=== PATIENT | female | born 1950 | race Caucasian/White ===

== ENCOUNTER 2025-04-13 14:22 | Emergency (ER) | payer MEDICARE, BC, SELFPAY ==
[2025-04-13 14:27] VITALS: BP 180/85; PULSE 88; RESP 18; TEMP 36.7; O2SAT 95; BMI 26.3
--- OUTSIDE RECORDS SUMMARY | 2025-04-13 14:34 | XMS_ITS | Clinical Summary ---
Author Organization [facility] Address [address] [place] [id number] Care Team Providers Care Intellectual Property Legal Assistant Name Role Phone Alana, Lilia Dominguez MD Primary Care Provider Allergies Active Allergy Reactions Criticality Noted Date Comments Lonny Inhibitors Cough 10/01/2011 Atenolol Arrhythmia,Other - Describe In Comment Field High 05/29/2012 Caused Atrial Fib Caused Atrial Fib Atorvastatin Myalgia 03/12/2017 Tree Nut Rash Influenza Virus Vaccines Rash 06/29/2019 Lisinopril Intolerance-Can't Take,Cough 07/24/2007 cough cough Pravastatin Myalgia 06/23/2018 Medications fluticasone (50 mcg per actuation) nasal solution (FLONASE) Inhale 2 Sprays in the nostril(s). Active multivitamin (MVI) tablet Take 1 Tab by mouth. 012 Active ezetimibe (ZETIA) 10 mg tabletIndications :Hyperlipidemia, unspecified hyperlipidemia type Take 1 Tablet (10 mg) by mouth once daily. 90 Tablet 3 025 Active acetaminophen 325 mg tabletIndications :S/P placement of cardiac pacemaker,Pain Take 2 Tablets (650 mg) by mouth every 4 hours if needed for Pain (For mild pain.). Max acetaminophen dose: 4000mg in 24 hrs. 025 Active losartan 100 mg tabletIndications :Essential hypertension Take 1 Tablet (100 mg) by mouth once daily. 90 Tablet 3 07/07/2 025 Active amLODIPine (NORVASC) 10 mg tabletIndications :Persistent atrial fibrillation (HC) Take 0.5 Tablets (5 mg) by mouth once daily. Active albuterol HFA (PRO-AIR; VENTOLIN; PROVENTIL) 90 mcg/actuation inhalerIndication s:Bronchitis with bronchospasm Inhale 1-2 Puffs by mouth every 6 hours if needed for Shortness Of Breath. 18 g Active rivaroxaban (XARELTO) 20 mg tabletIndications :prevention of thromboembolism in paroxysmal atrial fib Take 1 Tablet (20 mg) by mouth once daily with evening meal. 90 Tablet 3 Active metoprolol tartrate (LOPRESSOR) 50 mg tabletIndications :Persistent atrial fibrillation (HC) Take 1 Tablet (50 mg) by mouth two times daily. 180 Tablet 3 Active rivaroxaban 20 mg tabletIndications :prevention of thromboembolism in paroxysmal atrial fib Take 1 Tablet (20 mg) by mouth once daily with evening meal. Resume medication on evening of 10/14/24 90 Tablet 3 025 2024 Discontinued(R eorder (E-cancel not sent)) oxyCODONE 5 mg immediate release tabletIndications :S/P placement of cardiac pacemaker,Pain Take 1 Tablet (5 mg) by mouth every 4 hours if needed for Pain. 6 Tablet 025 2024 Discontinued(O ther - add note to specify (E-cancel not sent)) metoprolol tartrate (LOPRESSOR) 25 mg tabletIndications :Persistent atrial fibrillation (HC) Take 2 Tablets (50 mg) by mouth two times daily. 120 Tablet 1 025 2024 Discontinued albuterol HFA (PRO-AIR; VENTOLIN; PROVENTIL) 90 mcg/actuation inhalerIndication s:Bronchitis with bronchospasm Inhale 1-2 Puffs by mouth every 6 hours if needed for Shortness Of Breath. 18 g 025 2024 Discontinued(R eorder (E-cancel not sent)) metoprolol tartrate (LOPRESSOR) 50 mg tabletIndications :Persistent atrial fibrillation (HC) Take 1 Tablet (50 mg) by mouth two times daily. NOTE TABLET STRENGTH INCREASE - TAKE ONE TABLET 2x DAILY 180 Tablet 3 025 2024 Discontinued(R eorder (E-cancel not sent)) Active Problems Problem Noted Date Diagnosed Date S/P placement of cardiac pacemaker 04/07/2025 Hypertension 04/07/2025 Sinus pause 10/20/2024 s/p Cardiac pacemaker 10/20/2024 Colon polyp 10/11/2022 Overview (10/11/2022): Colonoscopy 09/2022 2-TA, repeat in 7 years PAF (paroxysmal atrial fibrillation) 07/05/2021 Prediabetes 03/13/2016 Osteopenia 03/13/2016 Screen for colon cancer 05/29/2012 Overview (05/29/2012): Colonoscopy 05/2012 normal repeat in 10 years Vitamin D deficiency 04/11/2010 Mixed hyperlipidemia Unspecified essential hypertension Encounters Date Type Department Care Team Description 04/13/2025 Telephone [facility] [address] [facility] [address] [place] [phone] Blake Milton MD Concerns 04/07/2025 10:30 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 Office Visit [facility] [address] [place] [address] [address] [place] [address] Gelnna Luo PA Follow Up (F/u PPM implant; pt feeling fatigued) 04/07/2025 Travel 03/26/2025 Refill [facility] [address] [facility] [address] [place] [phone] Blake Milton MD Refill Request (Metoprolol Tartrate) 03/23/2025 Refill [facility] [address] [place] [address] Lilia Warner MD Refill Request (Ventolin) 03/02/2025 Travel 02/16/2025 Refill [facility] [address] [place] [address] Alana, Lilia Angelica, MD Refill Request (VENTOLIN INHALER) from Last 3 Months Immunizations Immunization Administration Dates Next Due AMB INFLUENZA IIV3 (AGE 65+ YRS) PF (Flu Clinic Only) 03/13/2018 COVID-19 VACCINE SPIKEVAX (M ODERNA 50MCG/0.5ML) 12YO+ PFS 07/10/2023 COVID-19 vaccine (Pfizer-Bio NTech 30mcg/0.3mL) 12YO+ BIVALENT PF, MDV 07/06/2022 COVID-19 vaccine (Pfizer-Bio NTech 30mcg/0.3mL) PF, MDV 08/14/2020,07/24/2020 Influenza Virus, Unspecified 05/29/2009 Influenza, High-dose Inactivated 03/13/2016,02/18,03/04/2014 Influenza, IIV3 (Age >=3 years) 03/03/2010 Influenza, Inactivated IIV3 (Age 65+ Years) Preserv Free 03/19/2017 Pneumococcal Poly,23-Valent (Pneumovax) 06/05/19 18 Pneumococcal conj 13-Valent (Prevnar 13) 014 Td (Age >=7 Years) 10/08/1995 Td, Preservative Free (age >= 7 Years) 8 Tdap 03/26/2007 Family History Medical History Relation Name Comments Heart Disease Father ND at age 61, fatal Diabetes Mother 10/14/24 Cancer-colon Neg. 1 Heart Disease Neg. 2 Anesthesia Problem Neg. 3 Cancer-breast No Family History Cancer-ovarian No Family History Relation Name Status Comments Father Mother Neg. 1 Neg. 2 Neg. 3 Sister Social History Tobacco Use Types Packs/Day Years Used Date Smoking Tobacco: Never Smokeless Tobacco: Never Tobacco Cessation:Counseling Given: Yes Alcohol Use Standard Drinks/Week Comments Not Currently 0 (1 standard drink = 0.6 oz pur e alcohol) occasional PHQ-2 Answer Date Recorded PHQ-2 TOTAL SCORE 2 07/17/2024 Social Connections Answer Date Recorded Do you often feel lonely or isolated from those around you? 0 07/17/2024 Alcohol Use Answer Date Recorded How often do you have a drink containing alcohol ? 0 04/07/2025 Average Number of Drinks Not on file 025 Frequency of Binge Drinking Not on file 03/20 Financial Resource Strain Answer Date R ecorded Difficulty of Paying Living Expenses 3 07/17/2024 Difficulty of Paying Living Expenses Not on file 07/17/2024 Food Insecurity Answer Date Recorded Do you worry your food will run out before you are able to buy more? 1 07/17/2024 Transportation Needs Answer Date Record ed Does lack of transportation keep you from medica l appointments? 1 07/17/2024 Does lack of transportation keep you from work, meetings or getting things that you need? 1 07/17/2024 Housing Stability Answer Date Recorded What is your housing situation today? 1 07/17/2024 Utilities Answer Date Recorded Do you have trouble paying f or utilities (for example, heat, electricity, water, phone)? 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 Gender Identity Not on file Sexual Orientation Not on file Obstetrics History Last Filed Vital Signs Vital Sign Reading Time Taken Comments Blood Pressure 144/98 04/07/2025 10:43 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 Pulse 90 04/07/2025 10:27 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 Temperature 36.1 C (97 F) 10/13/2024 11:30 AM CDT Respiratory Rate 16 10/13/2024 11:30 AM CDT Oxygen Saturation 95% 04/07/2025 10:27 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 Inhaled Oxygen Concentration - - Weight 63.5 kg (140 lb) 04/07/2025 10:27 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 Height 154.9 cm (5' 0.98) 04/07/2025 10:[address] Body Mass Index 26.47 04/07/2025 10:27 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 Plan of Treatment Upcoming Encounters Date Type Department Care Team (Late st Contact Info) Description 07/05/2025 Cardiac Device Check EV Connect [facility] [phone] Health Maintenance Due Date Last Done Comments Zoster (shingles) series for age 50+ (1 of 2) 1999 RSV vaccine for adults or (1 - 1-dose 75+ series) 01/02/2024 COVID-19 vaccine series ( season) 2025 07/10/2023, 07/06/2022, 12/11/2021, Additional history exists Depression screening for age 12+ 07/17/2025 07/17/2024, 07/10/2023, 07/09/2022, Additional history exists Medicare Wellness for age 65+ 07/18/2025 07/17/2024, 07/10/2023, 07/06/2022, Additional history exists BMI (ht and wt on same day) for age 18+ 04/07/2026 04/07/2025, 10/01/2024, 08/20/2024, Additional history exists Tetanus booster 06/05/2027 06/05/2017, 11/2006, 10/08/1995 Hepatitis C screening for age 18-79 Completed 03/08/2015 Pneumococcal series for age 50+ Completed 06/05/2017, 03/04/2014 DEXA/DXA scan for age 65+ Completed 2024, 06/30/2019, 03/22/2015 Hepatitis B series for 19+ Aged Out N o longer eligible based on patient's age to complete this topic Procedures Procedure Name Priority Date/Time Associated Diagnosis Comments EKG 12 LEAD Routine 04/07/2025 Paroxysmal atrial fibrillation (HC) Fitting or adjustment of cardiac pacemaker Sinus node dysfunction (HC) XR DXA BONE DENSITY 2 SITES AXIAL Routine 07/31/2024 8:35 AM CDT Menopause ANTI HCV Routine 03/08/2015 8:50 AM CDT Need for hepatitis C screening test from Last 3 Months or Most Recently Relevant to Health Maintenance Results * EKG 12 LEAD (04/07/2025) Glenna BOWERS EKG ORD Final Result * (ABNORMAL) XR DXA BONE DENSITY 2 SITES AXIAL (07/31/2024 8:35 AM CDT) Anatomical Region Laterality Modality Spine, HIPS, HIPL, HIPR Other Impressions 08/11/2024 7:36 PM CDT Osteopenia. RECOMMENDATIONS: The National Osteoporosis Foundation recommends pharmacologic treatment for patients with T-scores of -2.5 or less, patients with prior history of fragility fractures, or patients with 10-year probability of greater than 3% at hips or greater than 20% of suffering major osteoporotic fractures. Recommend continued optimization of calcium and vitamin D intake through dietary means and/or supplementation and regular exercise. Consider pharmacologic therapy for osteopenia with increased fracture risk. Follow-up bone density reading in 2 years if therapy initiated to assess therapeutic efficacy. Leora Frost PA-C [facility] 08/11/2024 Narrative 08/11/2024 7:36 PM CDT For Patients: Results are automatically released to your [facility] ([facility]) account once available, in compliance with federal regulations. This means that you may see your results before your provider has had a chance to review them. Please allow 2-3 business days for your provider to comment on the results. XR DXA Bone Mineral Density (BMD) EXAM LOCATION: [address] [address] PATIENT NAME: Tiesha Echavarria DATE OF : 1950 EXAM DATE: 07/31/2024 REQUESTING PROVIDER: Lilia Warner MD GENDER AT : female HEIGHT: 5' 1.42 (07/17/2024) WEIGHT: 135 lb 9.6 oz (07/17/2024) MENOPAUSAL STATUS: Postmenopausal RACE/ETHNICITY: White RISK FACTORS: White Race CURRENT MEDICATION FOR BONE LOSS: NONE INDICATION: Menopause COMPARISON DATE(S): 2019 DXA scans are compared to prior studies for a patient only when the two (or more) studies were performed on the same scanner. It is not possible to compare data generated on one scanner to data from another because there are not standards in DXA equipment. This applies even if the two scanners are made by the same insurance biller. PROCEDURE: Dual-energy x-ray absorptiometry performed with routine technique. Reporting is completed in the form of a T-score. The T-score represents the standard deviation from peak bone mass based on young healthy adult. A Z-score is used for diagnosis in premenopausal women, and for men under the age of 50. FINDINGS: RESULT LUMBAR SPINE L1 - L4 BMD: 1.006 g/cm2 T-Score: - 1.5 Z-Score: + 0.4 Change from prior in 2019: Decrease 2.3%. RESULTS FEMUR Left femoral neck BMD: 0.706 g/cm2 T-Score: - 2.4 Z-Score: - 0.4 Change from prior in 2020: Decrease 6.1%. Right femoral neck BMD: 0.711 g/cm2 T-Score: - 2.3 Z-Score: - 0.3 Change from prior in 2020: Decrease 6.2%. Left hip BMD: 0.747 g/cm2 T-Score: - 2.1 Z-Score: - 0.2 Change from prior in 2020: Decrease 9.9%. Right hip BMD: 0.806 g/cm2 T-Score: - 1.6 Z-Score: + 0.2 Change from prior in 2020: Decrease 6.3%. WHO criteria: Normal: T-score at or above -1 SD Osteopenia: T-score between -1.1 and -2.4 SD Osteoporosis: T-score at or below -2.5 SD FRAX RISK CALCULATION (USED FOR OSTEOPENIA ONLY): 10-year probability of major osteoporotic fracture: 16.7%. 10-year probability of hip fracture: 5.2%. us Lilia Warner MD DEXA Final R esult * ANTI HCV (03/08/2015 8:50 AM CDT) HEPATITIS C ANTIBODY Non-Reacti ve Non-Reacti ve 03/08/2015 3:27 PM CDT [facility] Blood specimen (specimen) BLOOD SPECIMEN / Unknown Venipuncture / Unknown 03/08/2015 8:50 AM CDT 03/08/2015 8:51 AM CDT Narrative [facility] - 03/08/2015 3:27 PM CDT Antibodies to HCV not detected; does not exclude the possibility of exposure to HCV. us Quang Byrd MD SEND OUTS Final Result [facility] 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
--- NOTE | 2025-04-13 15:06 | ED.GENADULT ---
HPI - General Adult General Chief complaint: Hypertension Stated complaint: Hypertention Time Seen by Provider: 04/13/25 14:34 History of Present Illness HPI narrative: This 75-year-old female comes in with her and reports an episode of color and flickering lights in her vision that happened prior to arrival and now is completely resolved. She does not have any speech change or other neurologic deficit. She does not report a headache. She did measure her blood pressure and noticed that it was elevated. Related Data Home Medications ?Medication ?Instructions ?Recorded ?Confirmed amlodipine 10 mg tablet 5 mg PO DAILY 04/13/25 04/13/25 ezetimibe 10 mg tablet 10 mg PO DAILY 04/13/25 04/13/25 losartan 100 mg tablet 100 mg PO DAILY 04/13/25 04/13/25 metoprolol tartrate 25 mg tablet mg PO BID 04/13/25 rivaroxaban 20 mg tablet (Xarelto) 20 mg PO DAILY 04/13/25 04/13/25 Allergies Allergy/AdvReac Type Severity Reaction Status Date / Time No Known Drug Allergies Allergy Verified 04/13/25 14:32 Review of Systems Status of ROS: Reports: 10 or more systems reviewed and unremarkable except as noted in History and below Narrative: Constitutional: No fevers, no weight gain or loss. Eyes: No discharge. Vision change as described above. HENT: No congestion, no sore throat, no ear pain. Cardiovascular: No chest pain, no palpitations. Respiratory: No shortness of breath, no wheezes, no cough. Gastrointestinal: No abdominal pain, no vomiting, no diarrhea. Genitourinary: No dysuria, no hematuria. Musculoskeletal: Normal range of motion. Skin: No rashes, no pruritis. Neurological: No dizziness, weakness, sensory change, speech change. Endo/Heme/Allergies: No bruising or bleeding. No polydipsia. Pysch: no suicidality, no anxiety, no insomnia. All other systems reviewed and are negative. Exam Narrative: Exam Narrative: Constitutional: Well-developed, well-nourished, no acute distress. HEENT: Normocephalic, atraumatic. Neck: Normal range of motion. Nontender. Supple. Heart: Regular. No murmurs. Normal rate. Intact distal pulses. Lungs: Clear to auscultation. No chest discomfort. No wheezes, rhonchi, or rales. Abdomen: Normal bowel sounds. Nontender. No rebound tenderness. Genitalia: Deferred. Back: No midline tenderness. Normal range of motion. Extremities: Normal range of motion. No injury. Skin: Intact. No rash. Warm. No erythema or pallor. Neurologic: No altered sensation. No weakness. Alert and oriented. Psychiatric: No suicidality. No anxiety or depression. No insomnia. Nursing notes and vitals signs are reviewed. Const: Vital Signs, click to edit/add: Vital Signs - 24 hr 04/13/25 14:27 Temperature 98.1 F Pulse Rate [Pulse Oximeter] 88 Respiratory Rate 18 Blood Pressure [Ri t Upper Arm] 180/85 H Pulse Oximetry 95 Oxygen Delivery Me thod Room Air Course Vital Signs Vital signs: Initial Vital Signs Temperature 98.1 F 04/13/25 14:27 Temperature Source Temporal Artery Scan 04/13/25 14:27 Pulse Rate 88 04/13/25 14:27 Respiratory Rate 18 04/13/25 14:27 Blood Pressure 180/85 H 04/13/25 14:27 Blood Pressure Mean 116 H 04/13/25 14:27 Blood Pressure Position Sitting 04/13/25 14:27 Pulse Oximetry 95 04/13/25 14:27 Oxygen Delivery Method Room Air 04/13/25 14:27 Vital Signs Temperature 98.1 F 04/13/25 14:27 Pulse Rate 88 04/13/25 14:27 Respiratory Rate 18 04/13/25 14:27 Blood Pressure 180/85 H 04/13/25 14:27 Pulse Oximetry 95 04/13/25 14:27 Oxygen Delivery Method Room Air 04/13/25 14:27 Temperature 98.1 F 04/13/25 14:27 Pulse Rate 88 04/13/25 14:27 Respiratory Rate 18 04/13/25 14:27 Blood Pressure 180/85 H 04/13/25 14:27 Pulse Oximetry 95 04/13/25 14:27 Oxygen Delivery Method Room Air 04/13/25 14:27 Medical Decision Making MDM Narrative Medical decision making narrative: This patient comes in reporting visual changes lasting about 20 minutes. She had some color in her vision that was in a shape of an arc. She has not had symptoms like this in the past and denies having any other associated symptoms. I did use web based images to show various types of scintillating scotoma. The patient was able to identify with several of these. I did explain that this is a benign event that may have some to do with migraine syndrome or extra electrical activity in the visual cortex of the brain. She is not having any other symptoms that would alert concern. I did also speak with her regarding criteria for diagnosing and changing plans for treating blood pressure. Discharge Plan Discharge Clinical Impression: Scintillating scotoma Patient Disposition: Home, Self-Care Condition: Improved Additional Instructions: Continue current plans. Follow up with MD as needed or return if symptoms are recurrent or worsening. Prescriptions: No Action amlodipine 10 mg tablet 5 mg PO DAILY losartan 100 mg tablet 100 mg PO DAILY ezetimibe 10 mg tablet 10 mg PO DAILY metoprolol tartrate 25 mg tablet PO BID Xarelto 20 mg tablet 20 mg PO DAILY Follow Up/Referrals: Lilia Warner MD [Primary Care Provider, Family Practice] Stand Alone Forms: [employer] Info Instructions
== END 2025-04-13 15:25 | disposition home or self-care (01) ==
LOC: ED 15:30
PROVIDERS: Emergency Provider Emergency Medicine Emergency Medical Services; PCP Family Medicine
DX: H53.123 Transient visual loss, bilateral (principal)
CPT/HCPCS: 99283; 99284